=== PATIENT | male | born 1980 | race American Indian/Alaskan Native ===

== ENCOUNTER 2017-06-29 09:53 | Emergency (ER) | payer OTHER ==
[2017-06-29 09:59] VITALS: BP 140/99
--- NOTE | 2017-06-29 11:07 | Emergency Department Report ---
ED Back Pain/Injury HPI - General Chief Complaint: Fall Stated Complaint: FALL, BACK PAIN Time Seen by Provider: 06/29/17 11:07 Source: patient Limitations: No Limitations - History of Present Illness Initial Comments: 37-year-old male past medical history obesity, history of [place] presents with complaint of left buttock and lower back pain status post mechanical fall. Patient states that he tripped while walking down steps and fell onto his buttock. Patient complaining of left buttock and lower back pain. Denies any saddle paresthesias bladder or bowel incontinence. Patient is ambulatory without assistance. Denies any injuries to any other body part. MD Complaint: back pain Onset/Timin -: days(s) Place: home Radiation: buttocks, left leg Severity: moderate Severity scale (0 -10): 7 Quality: dull, aching Consistency: intermittent Improves With: immobilization, supine Worsens With: movement Context: while lifting, turning/twisting, bending, fall Associated Symptoms: denies other symptoms - Related Data Previous Rx's Medication Instructions Recorded Last Taken Type Acetaminophen [Acetaminophen TAB] 500 mg PO Q6HR PRN #25 tablet 06/29/17 Unknown Rx Acetaminophen/Codeine [Tylenol 1 tab PO Q6H PRN #12 tab 06/29/17 Unknown Rx /Codeine # 3 tab] Allergies Allergy/AdvReac Type Severity Reaction Status Date / Time aspirin Allergy Unknown Verified 06/29/17 10:00 ED Review of Systems ROS: Stated complaint: FALL, BACK PAIN Other details as noted in HPI Constitutional: denies: chills, fever Eyes: denies: eye pain, eye discharge, vision change ENT: denies: ear pain, throat pain Respiratory: denies: cough, shortness of breath, wheezing Cardiovascular: denies: chest pain, palpitations Endocrine: no symptoms reported Gastrointestinal: denies: abdominal pain, nausea, diarrhea Genitourinary: denies: urgency, dysuria Musculoskeletal: denies: back pain, joint swelling, arthralgia Skin: denies: rash, lesions Neurological: denies: headache, weakness, paresthesias Psychiatric: denies: anxiety, depression Hematological/Lymphatic: denies: easy bleeding, easy bruising ED Past Medical Hx - Past Medical History Previous Medical History?: Yes Hx Heart Attack/AMI: Yes - Surgical History Past Surgical History?: Yes Additional Surgical History: Jaw surgery 1994 - Social History Smoking Status: Former Smoker Substance Use Type: Non Opiate Pain - Medications Home Medications: Home Medications Medication Instructions Recorded Confirmed Last Taken Type Acetaminophen [Acetaminophen TAB] 500 mg PO Q6HR PRN #25 tablet 06/29/17 Unknown Rx Acetaminophen/Codeine [Tylenol 1 tab PO Q6H PRN #12 tab 06/29/17 Unknown Rx /Codeine # 3 tab] ED Physical Exam - General Limitations: No Limitations General appearance: alert, in no apparent distress - Head Head exam: Present: atraumatic, normocephalic - Eye Eye exam: Present: normal appearance, PERRL, EOMI - ENT ENT exam: Present: mucous membranes moist - Neck Neck exam: Present: normal inspection - Respiratory Respiratory exam: Present: normal lung sounds bilaterally. Absent: respiratory distress - Cardiovascular Cardiovascular Exam: Present: regular rate, normal rhythm. Absent: systolic murmur, diastolic murmur, rubs, gallop - GI/Abdominal GI/Abdominal exam: Present: soft, normal bowel sounds - Rectal Rectal exam: Present: deferred - Extremities Exam Extremities exam: Present: normal inspection - Expanded Lower Extremity Exam Left Hip exam: Present: normal inspection, full ROM (left hip internal and external rotation clinically intact flexion and extension intact) Upper Leg exam: Present: normal inspection, full ROM, tenderness (tenderness left buttock region) Knee exam: Present: normal inspection, full ROM Lower Leg exam: Present: normal inspection, full ROM Ankle exam: Present: normal inspection, full ROM Foot/Toe exam: Present: normal inspection Neuro vascular tendon exam: Present: no vascular compromise Gait: Positive: antalgic 1 - Some pain on palpation here no ecchymosis - Back Exam Back exam: Present: normal inspection, full ROM (range of motion back clinically intact to flexion and extension lateral rotation), paraspinal tenderness (patient has some paraspinal L-spine tenderness on left. No midline cervical thoracic or lumbar spinal tenderness) - Neurological Exam Neurological exam: Present: alert, oriented X3, CN II-XII intact, abnormal gait (slightly antalgic gait due toa/p: lower/lower back pain, lumbalgia) - Expanded Neurological Exam Expanded Patient oriented to: Present: person, place, time Cranial nerves: EOM's Intact: Normal, Facial Sensation: Normal Cerebellar function: Finger to Nose: Normal, Heel to Boucher: Normal, Romberg: Normal Sensory exam: Upper Extremity Light Touch: Normal, Lower Extremity Light Touch: Normal Motor strength exam: RUE: 5, LUE: 5, LLE: 5 Best Eye Response (Zayra): (4) open spontaneously Best Motor Response (Zayra): (6) obeys commands Best Verbal Response (Zayra): (5) oriented Zayra Total: 15 - Psychiatric Psychiatric exam: Present: normal affect, normal mood - Skin Skin exam: Present: warm, dry, intact, normal color. Absent: rash ED Course Vital Signs 06/29/17 06/29/17 09:55 12:20 Temperature 97.6 F Pulse Rate 98 H Respiratory 18 16 Rate Blood Pressure 140/99 O2 Sat by Pulse 98 Oximetry ED Medical Decision Making - Medical Decision Making A/P: Lower back pain, lower back contusion, left buttock contusion, sciatica 1- Patient states he experiences hives with NSAIDs, short course Tylenol No. 3 when necessary 2-patient is ambulatory without assistance, no signs of cauda equina. X-rays unremarkable. Patient has good deep tendon reflexes bilaterally in both lower extremities. Strength 5 out of 5 both lower extremities. 3-follow-up with primary care and orthopedics Critical care attestation.: If time is entered above; I have spent that time in minutes in the direct care of this critically ill patient, excluding procedure time. ED Disposition Clinical Impression: Sciatica of left side Lower back pain Qualifiers: Chronicity: acute Back pain laterality: left Sciatica presence: with sciatica Sciatica laterality: sciatica of left side Qualified Code(s): M54.42 - Lumbago with sciatica, left side Disposition: TO HOME OR SELFCARE Is pt being admited?: No Does the pt Need Aspirin: No Condition: Stable Instructions: Sciatica (ED), Acute Low Back Pain (ED), Back Pain (ED) Prescriptions: Acetaminophen [Acetaminophen TAB] 500 mg PO Q6HR PRN #25 tablet PRN Reason: Pain Acetaminophen/Codeine [Tylenol /Codeine # 3 tab] 1 tab PO Q6H PRN #12 tab PRN Reason: Pain Referrals: [facility] [Outside] - 3-5 Days [facility] [Outside] - 3-5 Days [facility] [Provider Group] - 3-5 Days Forms: Work/School Release Form(ED) Time of Disposition: 13:15
[2017-06-29] MEDS ORDERED: ZOFRAN ODT PO ONE (12:14)
[2017-06-29] MEDS ORDERED: NORCO 10/325 PO ONE (12:14)
--- NOTE | 2017-06-29 12:54 | XRay Report ---
THORACIC SPINE, 2 VIEWS LUMBAR SPINE, 3 VIEWS History: Back pain. Findings: There is a mild dextrocurvature to the thoracic spine and mild levocurvature of the lumbar spine. Bone mineralization is within normal limits. There is no evidence for compression deformity, malalignment or bone lesion. No significant degenerative changes are appreciated on x-ray. The posterior ribs and posterior elements are unremarkable. Impression: Mild scoliosis. No evidence for fracture, malalignment or significant degenerative changes.
== END 2017-06-29 13:30 | disposition home or self-care (01) ==
LOC: ED 09:53
DX: M54.42 Lumbago with sciatica, left side (principal); M79.605 Pain in left leg; I25.2 Old myocardial infarction; Z87.891 Personal history of nicotine dependence; Z88.6 Allergy status to analgesic agent; W10.9XXA Fall (on) (from) unspecified stairs and steps, initial encounter; Y93.01 Activity, walking, marching and hiking; Y99.8 Other external cause status; Y92.009 Unspecified place in unspecified non-institutional (private) residence as the place of occurrence of the external cause
CPT/HCPCS: 72072; 72100; 99283; Q0162

== ENCOUNTER 2017-07-15 21:50 | Emergency (ER) | payer SELFPAY ==
[2017-07-15 22:39] LABS: Basophils # (Auto) 0.1 K/mm3 (0.0-0.1); Eosinophils # (Auto) 0.3 K/mm3 (0.0-0.4); Eosinophils % (Auto) 4.6 % (0.0-4.3); Hemoglobin 16.8 gm/dl (11.8-15.2); Lymphocytes # (Auto) 1.5 K/mm3 (1.2-5.4); Lymphocytes % (Auto) 23.2 % (13.4-35.0); Mean Corpuscular HGB Conc 34 % (32-34); Mean Corpuscular Hemoglobin 30 pg (28-32); Mean Corpuscular Volume 91 fl (84-94); Monocytes # (Auto) 0.5 K/mm3 (0.0-0.8); Monocytes % (Auto) 6.9 % (0.0-7.3); Platelet Count 250 K/mm3 (140-440); Red Blood Count 5.53 M/mm3 (3.65-5.03); Red Cell Distribution Width 13.5 % (13.2-15.2)
--- NOTE | 2017-07-15 23:39 | XRay Report ---
FINAL REPORT PROCEDURE: XR CHEST ROUTINE 2V TECHNIQUE: PA and lateral chest radiographs were obtained. CPT 16496 HISTORY: [email or web address] COMPARISON: No prior studies are available for comparison. FINDINGS: Heart: Normal. Mediastinum/Vessels: Normal. Lungs/Pleural space: Normal. Bony thorax: No acute osseous abnormality. Other: IMPRESSION: Normal examination.
[2017-07-16] LABS: BUN/Creatinine Ratio 11; Blood Urea Nitrogen 9 mg/dL (9-20); Calcium 8.9 mg/dL (8.4-10.2); Hemolysis Index 28
--- NOTE | 2017-07-16 02:53 | Emergency Department Report ---
ED Chest Pain HPI - General Chief Complaint: Chest Pain Stated Complaint: CHEST PAIN Time Seen by Provider: 07/16/17 01:47 Source: patient Mode of arrival: Ambulatory Limitations: No Limitations - History of Present Illness Initial Comments: Patient is a 37-year-old [place] male who is presenting with chest discomfort. Patient states that for the past day he has had some chest discomfort. Patient states it's similar chest and worse when he coughs. Patient's had a cough for approximately 3-4 days. Nonproductive cough. Patient is a smoker. The patient denies any exertional component shortness of breath fevers chills nausea vomiting diaphoresis at this time. Pain Location: substernal Severity scale (0 -10): 3 Quality: aching, sharp - Related Data Previous Rx's Medication Instructions Recorded Last Taken Type Acetaminophen [Acetaminophen TAB] 500 mg PO Q6HR PRN #25 tablet 06/29/17 Unknown Rx Acetaminophen/Codeine [Tylenol 1 tab PO Q6H PRN #12 tab 06/29/17 Unknown Rx /Codeine # 3 tab] ALBUTEROL Inhaler [ProAir HFA 2 puff IH QID PRN #1 inhalation 07/16/17 Unknown Rx Inhaler] Benzonatate [Tessalon Perle] 100 mg PO TID #10 capsule 07/16/17 Unknown Rx Doxycycline [Vibramycin CAP] 100 mg PO Q12HR #14 capsule 07/16/17 Unknown Rx HYDROcodone/APAP 5-325 [[place] 1 each PO Q6HR PRN #10 tablet 07/16/17 Unknown Rx 5/325] Prednisone [predniSONE 5 mg (6-Day 5 mg PO .TAPER #1 tab.ds.pk 07/16/17 Unknown Rx Pack, 21 Tabs)] Allergies Allergy/AdvReac Type Severity Reaction Status Date / Time aspirin Allergy Unknown Verified 06/29/17 10:00 Heart Score - HEART Score History: Slightly suspicious EKG: Normal Age: < 45 Risk factors: No known risk factors Troponin: < normal limit HEART Score: 0 ED Review of Systems ROS: Stated complaint: CHEST PAIN Other details as noted in HPI Comment: All other systems reviewed and negative ED Past Medical Hx - Past Medical History Hx Heart Attack/AMI: Yes - Surgical History Additional Surgical History: Jaw surgery 1994 - Social History Smoking Status: Current Every Day Smoker Substance Use Type: None - Medications Home Medications: Home Medications Medication Instructions Recorded Confirmed Last Taken Type Acetaminophen [Acetaminophen TAB] 500 mg PO Q6HR PRN #25 tablet 06/29/17 Unknown Rx Acetaminophen/Codeine [Tylenol 1 tab PO Q6H PRN #12 tab 06/29/17 Unknown Rx /Codeine # 3 tab] ALBUTEROL Inhaler [ProAir HFA 2 puff IH QID PRN #1 inhalation 07/16/17 Unknown Rx Inhaler] Benzonatate [Tessalon Perle] 100 mg PO TID #10 capsule 07/16/17 Unknown Rx Doxycycline [Vibramycin CAP] 100 mg PO Q12HR #14 capsule 07/16/17 Unknown Rx HYDROcodone/APAP 5-325 [[place] 1 each PO Q6HR PRN #10 tablet 07/16/17 Unknown Rx 5/325] Prednisone [predniSONE 5 mg (6-Day 5 mg PO .TAPER #1 tab.ds.pk 07/16/17 Unknown Rx Pack, 21 Tabs)] ED Physical Exam - General Limitations: No Limitations General appearance: alert, in no apparent distress - Head Head exam: Present: atraumatic, normocephalic - Eye Eye exam: Present: normal appearance - ENT ENT exam: Present: mucous membranes moist - Neck Neck exam: Present: normal inspection - Respiratory Respiratory exam: Present: normal lung sounds bilaterally. Absent: respiratory distress - Cardiovascular Cardiovascular Exam: Present: regular rate, normal rhythm. Absent: systolic murmur, diastolic murmur, rubs, gallop - GI/Abdominal GI/Abdominal exam: Present: soft, normal bowel sounds - Rectal Rectal exam: Present: deferred - Extremities Exam Extremities exam: Present: normal inspection - Back Exam Back exam: Present: normal inspection - Neurological Exam Neurological exam: Present: alert, oriented X3 - Psychiatric Psychiatric exam: Present: normal affect, normal mood - Skin Skin exam: Present: warm, dry, intact, normal color. Absent: rash ED Course Vital Signs 07/15/17 07/15/17 07/16/17 21:52 22:02 01:49 Temperature 98.2 F 98.2 F Pulse Rate 93 H 93 H Respiratory 18 16 18 Rate Blood Pressure 134/95 134/95 O2 Sat by Pulse 98 98 99 Oximetry ED Medical Decision Making - Lab Data Result diagrams: 07/15/17 22:25 07/15/17 22:25 Lab Results 07/15/17 07/15/17 07/16/17 Range/Units 22:25 22:25 01:44 WBC 6.6 (4.5-11.0) K/mm3 RBC 5.53 H (3.65-5.03) M/mm3 Hgb 16.8 H (11.8-15.2) gm/dl Hct 50.0 H (35.5-45.6) % MCV 91 (84-94) fl MCH 30 (28-32) pg MCHC 34 (32-34) % RDW 13.5 (13.2-15.2) % Plt Count 250 (140-440) K/mm3 Lymph % (Auto) 23.2 (13.4-35.0) % [place] % (Auto) 6.9 (0.0-7.3) % Eos % (Auto) 4.6 H (0.0-4.3) % Baso % (Auto) 2.0 H (0.0-1.8) % Lymph # 1.5 (1.2-5.4) K/mm3 [place] # 0.5 (0.0-0.8) K/mm3 Eos # 0.3 (0.0-0.4) K/mm3 Baso # 0.1 (0.0-0.1) K/mm3 Seg Neutrophils % 63.3 (40.0-70.0) % Seg Neutrophils # 4.2 (1.8-7.7) K/mm3 Sodium 142 (137-145) mmol/L Potassium 4.3 (3.6-5.0) mmol/L Chloride 102.0 (98-107) mmol/L Carbon Dioxide 20 L (22-30) mmol/L Anion Gap 24 mmol/L BUN 9 (9-20) mg/dL Creatinine 0.8 (0.8-1.5) mg/dL Estimated GFR > 60 ml/min BUN/Creatinine Ratio 11 % Glucose 111 H (75-100) mg/dL Calcium 8.9 (8.4-10.2) mg/dL Troponin T < 0.010 < 0.010 (0.00-0.029) ng/mL - EKG Data -: EKG Interpreted by Ne - EKG Data Interpretation: other (EKG shows rate of 88 sinus rhythm normal axis normal intervals no ST segment elevations or depressions.) - Radiology Data Radiology results: report reviewed interpreted by me: X-ray is within normal limits. - Medical Decision Making Patient is a 37-year-old black male who presented with chest discomfort. This is worse with cough. There is no pain with he deep breathes patient is not tachycardic. Patient has had a recent cold and cough. Patient most likely has costochondritis will be discharged home. Patient still coughing and is a smoker therefore he be treated for smoker's bronchitis as well. Critical care attestation.: If time is entered above; I have spent that time in minutes in the direct care of this critically ill patient, excluding procedure time. ED Disposition Clinical Impression: Costochondral chest pain, Acute bronchitis Disposition: TO HOME OR SELFCARE Is pt being admited?: No Does the pt Need Aspirin: No Condition: Stable Instructions: Chest Pain (ED), Acute Bronchitis (ED) Prescriptions: ALBUTEROL Inhaler [ProAir HFA Inhaler] 2 puff IH QID PRN #1 inhalation PRN Reason: Shortness Of Breath Benzonatate [Tessalon Perle] 100 mg PO TID #10 capsule Doxycycline [Vibramycin CAP] 100 mg PO Q12HR #14 capsule HYDROcodone/APAP 5-325 [[place] 5/325] 1 each PO Q6HR PRN #10 tablet PRN Reason: Pain Prednisone [predniSONE 5 mg (6-Day Pack, 21 Tabs)] 5 mg PO .TAPER #1 tab.ds.pk Referrals: JESSEE SANCHEZ MD [Staff Physician] - 3-5 Days
[2017-07-16 03:07] VITALS: BP 134/94
== END 2017-07-16 03:11 | disposition home or self-care (01) ==
LOC: ED 21:50
DX: R07.1 Chest pain on breathing (principal); J40 Bronchitis, not specified as acute or chronic; I25.2 Old myocardial infarction; F17.200 Nicotine dependence, unspecified, uncomplicated; Z88.6 Allergy status to analgesic agent
CPT/HCPCS: 36415; 71046; 80048; 84484; 85025; 93005; 93010

== ENCOUNTER 2017-08-17 08:19 | Emergency (ER) | payer OTHER ==
[2017-08-17 08:30] VITALS: BP 144/98
[2017-08-17] MEDS ORDERED: TORADOL ONE (10:40)
[2017-08-17] MEDS ORDERED: ULTRAM PO ONE (10:43)
[2017-08-17] MEDS ORDERED: TORADOL IM ONE (10:45)
--- NOTE | 2017-08-17 17:26 | Emergency Department Report ---
HPI - General Chief Complaint: Back Pain/Injury Time Seen by Provider: 08/17/17 09:51 - HPI HPI: The patient's 37-year-old male who presents for evaluation of low back pain. The patient has a history of chronic back pain since an accident some time ago. He states that he reinjured his back yesterday while playing football with this child's son. He complains of constant pain since, sharp in quality, 10/10 in severity, exacerbated with bending over or movement of the back. The patient denies fever, chills, night sweats, saddle anesthesia, paresthesias, numbness or tingling in the legs, leg weakness, urine or bowel incontinence or retention , difficulty ambulating, or other focal neurological deficits. The patient also denies redness or swelling to the back, IV drug use, history of cancer. ED Past Medical Hx - Past Medical History Hx Hypertension: Yes Hx Heart Attack/AMI: Yes - Surgical History Additional Surgical History: Jaw surgery 1994 - Social History Smoking Status: Current Every Day Smoker Substance Use Type: None - Medications Home Medications: Home Medications Medication Instructions Recorded Confirmed Last Taken Type Acetaminophen [Acetaminophen TAB] 500 mg PO Q6HR PRN #25 tablet 06/29/17 Unknown Rx Acetaminophen/Codeine [Tylenol 1 tab PO Q6H PRN #12 tab 06/29/17 Unknown Rx /Codeine # 3 tab] ALBUTEROL Inhaler [ProAir HFA 2 puff IH QID PRN #1 inhalation 07/16/17 Unknown Rx Inhaler] Benzonatate [Tessalon Perle] 100 mg PO TID #10 capsule 07/16/17 Unknown Rx Doxycycline [Vibramycin CAP] 100 mg PO Q12HR #14 capsule 07/16/17 Unknown Rx HYDROcodone/APAP 5-325 [[place] 1 each PO Q6HR PRN #10 tablet 07/16/17 Unknown Rx 5/325] Prednisone [predniSONE 5 mg (6-Day 5 mg PO .TAPER #1 tab.ds.pk 07/16/17 Unknown Rx Pack, 21 Tabs)] traMADol [Ultram 50 MG tab] 50 mg PO Q6HR PRN #15 tablet 08/17/17 Unknown Rx ED Review of Systems ROS: Stated complaint: BACK PAIN Other details as noted in HPI Constitutional: denies: fever ENT: denies: throat or neck pain Respiratory: denies: cough, shortness of breath Cardiovascular: denies: chest pain Endocrine: denies unexplained weight loss or gain Gastrointestinal: denies: abdominal pain, nausea Genitourinary: denies: dysuria Musculoskeletal: denies: leg swelling Skin: denies: rash Neurological: denies: headache Hematological/Lymphatic: denies: easy bleeding or easy bruising Psych: denies sadness or hopelessness Physical Exam - Physical Exam Vital Signs: Vital Signs 08/17/17 08:27 Temperature 98.1 F Pulse Rate 91 H Respiratory 20 Rate Blood Pressure 144/98 O2 Sat by Pulse 96 Oximetry Physical Exam: General: well-nourished, well-developed, no acute distress Head: Normocephalic, atraumatic Eyes: normal sclera ENT: Mucous membranes are pink and moist Neck: trachea midline, neck supple, No neck stiffness, no cervical adenopathy Respiratory: Breath sounds equal bilaterally, no wheezing, rales, or rhonchi Cardio: S1 and S2 present, no murmurs, rubs, gallops, capillary refill is brisk Abdomen: Normoactive bowel sounds, soft abdomen, no tenderness Chest WALL/Back: No tenderness to palpation of the chest wall, no CVA tenderness with percussion Musc: Tenderness to palpation present to bilateral lumbar paraspinal musculature , pain is elicited with flexion at the hip, normal active range of motion at the hip intact, no spinous step-off or obvious deformity, ipsi-lateral and contralateral straight leg raise tests are negative. On extremity testing, compartments are soft and pliable, no obvious gross motor strength deficit, 5+ motor strength, including extension of the great toe bilaterally, no muscular atrophy, spasticity, fasciculations, or clonus, no obvious gross sensation deficit including web space between 1st and 2nd toes, reflexes 2+ & symmetric on DTR testing at the knee and ankle joints, distal pulses intact. Skin: No rash Neuro: no facial drooping, normal speech Psych: Normal affect ED Course Vital Signs 08/17/17 08:27 Temperature 98.1 F Pulse Rate 91 H Respiratory 20 Rate Blood Pressure 144/98 O2 Sat by Pulse 96 Oximetry ED Medical Decision Making - Medical Decision Making The patient was seen and examined by myself. The patient is placed on a cardiac monitor technician and continuous pulse ox. On initial evaluation, the patient was found to be in no distress. No findings on exam concerning for cauda equina syndrome, spinal stenosis, or epidural abscess. As the patient has no midline tenderness on exam, no neuro deficits, and no findings concerning for emergent etiology of their back pain, imaging will not be obtained at this time. The patient is given pain medicine. The patient was reevaluated and reported that their pain significantly improved. The patient is stable for discharge with outpatient follow-up. The patient is given follow-up and return instructions. The patient expressed understanding and agreed with the plan. The patient is discharged in stable condition. Critical care attestation.: If time is entered above; I have spent that time in minutes in the direct care of this critically ill patient, excluding procedure time. ED Disposition Clinical Impression: Acute bilateral low back pain without sciatica Disposition: TO HOME OR SELFCARE Is pt being admited?: No Does the pt Need Aspirin: No Condition: Stable Instructions: Chronic Back Pain (ED), Low Back Strain (ED) Referrals: PRIMARY MD KAYLA [Primary Care Provider] - 3-5 Days DEMETRIUS MADDOX MD [Staff Physician] - 3-5 Days Forms: Work/School Release Form(ED) Time of Disposition: 10:58
== END 2017-08-17 11:06 | disposition home or self-care (01) ==
LOC: ED 08:19
DX: M54.5 Low back pain (principal); I11.0 Hypertensive heart disease with heart failure; F17.200 Nicotine dependence, unspecified, uncomplicated
CPT/HCPCS: 96372; 99282; J1885

== ENCOUNTER 2017-08-20 08:15 | Emergency (ER) | payer SELFPAY ==
[2017-08-20 08:48] LABS: Basophils # (Auto) 0.1 K/mm3 (0.0-0.1); Basophils % (Auto) 0.7 % (0.0-1.8); Eosinophils # (Auto) 0.1 K/mm3 (0.0-0.4); Hematocrit 48.6 % (35.5-45.6); Hemoglobin 16.2 gm/dl (11.8-15.2); Lymphocytes # (Auto) 1.8 K/mm3 (1.2-5.4); Lymphocytes % (Auto) 20.6 % (13.4-35.0); Mean Corpuscular HGB Conc 33 % (32-34); Mean Corpuscular Hemoglobin 30 pg (28-32); Mean Corpuscular Volume 91 fl (84-94); Monocytes # (Auto) 0.5 K/mm3 (0.0-0.8); Monocytes % (Auto) 5.6 % (0.0-7.3); Platelet Count 265 K/mm3 (140-440); Red Blood Count 5.37 M/mm3 (3.65-5.03); Red Cell Distribution Width 13.8 % (13.2-15.2)
[2017-08-20 09:03] LABS: BUN/Creatinine Ratio 12; Blood Urea Nitrogen 12 mg/dL (9-20); Calcium 9.2 mg/dL (8.4-10.2); Hemolysis Index 7
[2017-08-20] MEDS ORDERED: NORCO 5/325 PO ONE (10:22)
--- NOTE | 2017-08-20 10:27 | Emergency Department Report ---
HPI - General Chief Complaint: Chest Pain Time Seen by Provider: 08/20/17 10:11 - HPI HPI: Room 18 The patient is a 37-year-old male presented with a chief complaint of back pain and chest pain. The patient states 1.5 months ago he fell down 8 stairs injuring his back. The patient states he came to the hospital the following day after the fall for evaluation. Patient states he had imaging performed which did not reveal any significant abnormalities and he was given a prescription for pain medication at discharge (patient believes was Tylenol No. 3). The patient states 4 days ago while playing football with his son he again reinjured his back pop him to come to the emergency department. The patient states he was given a prescription for Ultram for his pain. The patient states approximately 20-30 minutes after taking Ultram he develops a funny feeling in his chest and last approximately one hour. The patient states for the past 4 days every time he took Ultram approximately 20-30 minutes later he developed this chest discomfort. The patient states this morning at 05:00 he waking with shortness of breath nausea and diaphoresis prompted him to come to the ED. The patient states his chest pain subsided and he mostly has pain in his back on the lower right side. 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) - Surgical History Past Surgical History?: Yes Additional Surgical History: Jaw surgery 1994 - Family History Family history: no significant - Social History Smoking Status: Current Every Day Smoker (2/3 pack per day) Substance Use Type: None (patient denies illicit drug use) - Medications Home Medications: Home Medications Medication Instructions Recorded Confirmed Last Taken Type Acetaminophen [Acetaminophen TAB] 500 mg PO Q6HR PRN #25 tablet 06/29/17 Unknown Rx Acetaminophen/Codeine [Tylenol 1 tab PO Q6H PRN #12 tab 06/29/17 Unknown Rx /Codeine # 3 tab] ALBUTEROL Inhaler [ProAir HFA 2 puff IH QID PRN #1 inhalation 07/16/17 Unknown Rx Inhaler] Benzonatate [Tessalon Perle] 100 mg PO TID #10 capsule 07/16/17 Unknown Rx Doxycycline [Vibramycin CAP] 100 mg PO Q12HR #14 capsule 07/16/17 Unknown Rx HYDROcodone/APAP 5-325 [Cutler 1 each PO Q6HR PRN #10 tablet 07/16/17 Unknown Rx 5/325] Prednisone [predniSONE 5 mg (6-Day 5 mg PO .TAPER #1 tab.ds.pk 07/16/17 Unknown Rx Pack, 21 Tabs)] traMADol [Ultram 50 MG tab] 50 mg PO Q6HR PRN #15 tablet 08/17/17 Unknown Rx Cyclobenzaprine [Flexeril] 10 mg PO TID PRN #15 tablet 08/20/17 Unknown Rx HYDROcodone/APAP 5-325 [Cutler 1 - 2 each PO Q6HR PRN #14 tablet 08/20/17 Unknown Rx 5/325] ED Review of Systems ROS: Stated complaint: CHEST/BACK PAIN Other details as noted in HPI Constitutional: diaphoresis Respiratory: shortness of breath Cardiovascular: chest pain Gastrointestinal: nausea. denies: vomiting Musculoskeletal: back pain Physical Exam - Physical Exam Vital Signs: Vital Signs 08/20/17 08:22 Temperature 98.0 F Pulse Rate 90 Respiratory 18 Rate Blood Pressure 132/93 O2 Sat by Pulse 100 Oximetry Physical Exam: GENERAL: The patient is well-developed well-nourished male lying on stretcher not appearing to be in acute distress. [] HEENT: Normocephalic. Atraumatic. Extraocular motions are intact. Patient has moist mucous membranes. NECK: Supple. Trachea midline CHEST/LUNGS: Clear to auscultation. There is no respiratory distress noted. HEART/CARDIOVASCULAR: Regular. There is no tachycardia. There is no gallop rub or murmur. ABDOMEN: Abdomen is soft, nontender. Patient has normal bowel sounds. There is no abdominal distention. SKIN: There is no rash. There is no edema. There is no diaphoresis. NEURO: The patient is awake, alert, and oriented. The patient is cooperative. The patient has normal speech MUSCULOSKELETAL: There is no evidence of acute injury. ED Course Vital Signs 08/20/17 08:22 Temperature 98.0 F Pulse Rate 90 Respiratory 18 Rate Blood Pressure 132/93 O2 Sat by Pulse 100 Oximetry ED Medical Decision Making - Lab Data Result diagrams: 08/20/17 08:28 08/20/17 08:28 Laboratory Tests 08/20/17 08/20/17 08/20/17 08:28 08:28 10:32 WBC 9.0 RBC 5.37 H Hgb 16.2 H Hct 48.6 H MCV 91 MCH 30 MCHC 33 RDW 13.8 Plt Count 265 Lymph % (Auto) 20.6 [place] % (Auto) 5.6 Eos % (Auto) 1.0 Baso % (Auto) 0.7 Lymph # 1.8 [place] # 0.5 Eos # 0.1 Baso # 0.1 Seg Neutrophils % 72.1 H Seg Neutrophils # 6.5 D-Dimer < 135.00 Sodium 137 Potassium 4.1 Chloride 101.5 Carbon Dioxide 23 Anion Gap 17 BUN 12 Creatinine 1.0 Estimated GFR > 60 BUN/Creatinine Ratio 12 Glucose 153 H Calcium 9.2 Troponin T < 0.010 08/20/17 11:37 WBC RBC Hgb Hct MCV MCH MCHC RDW Plt Count Lymph % (Auto) [place] % (Auto) Eos % (Auto) Baso % (Auto) Lymph # [place] # Eos # Baso # Seg Neutrophils % Seg Neutrophils # D-Dimer Sodium Potassium Chloride Carbon Dioxide Anion Gap BUN Creatinine Estimated GFR BUN/Creatinine Ratio Glucose Calcium Troponin T < 0.010 - EKG Data -: EKG Interpreted by Me EKG shows normal: sinus rhythm Rate: normal - EKG Data When compared to previous EKG there are: no significant change Interpretation: unchanged when compared t (07/15/2017) - Radiology Data Radiology results: image reviewed (chest x-ray) interpreted by me: Chest x-ray-no focal infiltrate, no pneumothorax - Differential Diagnosis medication reaction, ACS, PE, GERD, pericarditis Critical care attestation.: If time is entered above; I have spent that time in minutes in the direct care of this critically ill patient, excluding procedure time. ED Disposition Clinical Impression: Medication reaction, Back pain Disposition: DC-01 TO HOME OR SELFCARE Is pt being admited?: No Does the pt Need Aspirin: No Condition: Stable Additional Instructions: Return to the emergency department immediately should you develop worsening symptoms, fever, inability to tolerate food or liquid or any other concerns. Prescriptions: Cyclobenzaprine [Flexeril] 10 mg PO TID PRN #15 tablet PRN Reason: Muscle Spasm HYDROcodone/APAP 5-325 [Cutler 5/325] 1 - 2 each PO Q6HR PRN #14 tablet PRN Reason: Pain Referrals: PRIMARY CARE, [Primary Care Provider] - 3-5 Days DEMERTIUS RED MD [Staff Physician] - 3-5 Days (Dr. Red is an orthopedic surgeon. Please follow-up with him for further evaluation) Time of Disposition: 12:34
[2017-08-20 12:22] VITALS: BP 137/79
--- NOTE | 2017-08-20 12:48 | XRay Report ---
Chest 2 views: History: Chest pain. Findings: Normal cardiomediastinal silhouette. Trachea is midline. No consolidation, pneumothorax or pleural effusion. Impression: No acute cardiopulmonary findings.
== END 2017-08-20 13:10 | disposition home or self-care (01) ==
LOC: ED 08:15
DX: S39.092A Other injury of muscle, fascia and tendon of lower back, initial encounter (principal); I11.0 Hypertensive heart disease with heart failure; F17.200 Nicotine dependence, unspecified, uncomplicated; W10.8XXA Fall (on) (from) other stairs and steps, initial encounter; Y93.89 Activity, other specified; Y92.89 Other specified places as the place of occurrence of the external cause; Y99.8 Other external cause status
CPT/HCPCS: 36415; 71046; 80048; 84484; 85025; 85379; 93005; 93010; 99284

== ENCOUNTER 2017-10-01 07:17 | Emergency (ER) | payer OTHER ==
[2017-10-01 07:29] VITALS: BP 150/94
--- NOTE | 2017-10-01 09:50 | Emergency Department Report ---
Chief Complaint: Back Pain/Injury Stated Complaint: SEVERE BACK PAIN Time Seen by Provider: 10/01/17 09:18 - HPI History of Present Illness: Patient is a 37-year-old black male with a past medical history of back pain who states he went to [facility] and was coming down a slide and he went up on the edge of the slide and came down forcefully. There was no fall from any height. Patient states his left lower back is in pain. Patient states the pain is a 6 out of 10. Hurts to move. Patient states he has not taken anything [id number]. Patient denies any bowel or bladder dysfunction. - ROS Review of Systems: All systems are reviewed and are negative - Exam Vital Signs: Vital Signs 10/01/17 07:26 Temperature 97.6 F Pulse Rate 84 Respiratory 20 Rate Blood Pressure 150/94 O2 Sat by Pulse 99 Oximetry Physical Exam: Brief physical exam the patient has no midline tenderness or step off. Patient has some lower left-sided lumbar discomfort on palpation. There is no swelling there is no erythema and no induration. MSE screening note: Focused history and physical exam performed. Due to findings the following was ordered: ED Medical Decision Making - Medical Decision Making X-rays were not warranted for this patient. Patient even stated that he didn't think he needed x-rays. Patient is not a medical emergency at this time. Patient had a medical screening and opted to not have 150 co-pay and he was given referral to [facility]. ED Disposition for MSE Clinical Impression: Back pain Disposition: Z-07 MED SCREENING EXAM-LEFT Is pt being admited?: No Does the pt Need Aspirin: No Condition: Stable Referrals: PRIMARY CARE, [Primary Care Provider] - 3-5 Days
== END 2017-10-01 09:46 | disposition left against medical advice (07) ==
LOC: ED 07:17
DX: M54.89 Other dorsalgia (principal); Z53.21 Procedure and treatment not carried out due to patient leaving prior to being seen by health care provider